=== PATIENT | male | born 1955 | race Caucasian/White ===

== ENCOUNTER 2024-06-16 09:25 | Outpatient (CLI) | payer MEDICARE, BC | END 2024-06-16 23:59 | disposition home or self-care (01) | LOC: MRI02 09:25 | PROVIDERS: ATTEND Pediatrics Sports Medicine | DX: M47.817 Spondylosis without myelopathy or radiculopathy, lumbosacral region (principal); M51.370 Other intervertebral disc degeneration, lumbosacral region with discogenic back pain only; M43.16 Spondylolisthesis, lumbar region; M79.10 Myalgia, unspecified site | CPT/HCPCS: 72148 ==

== ENCOUNTER 2025-03-31 08:46 | Emergency (ER) | payer MEDICARE, BC ==
[~2025-03-31] VITALS: Ht 177.8 cm; Wt 102.1 kg
[2025-03-31 08:51] VITALS: TEMP 98.2
--- NOTE | 2025-03-31 09:01 | Physician Documentation ---
History of Present Illness ~ Stated Complaint: PAINFUL URINATION Time Seen by MD: 09:07 HPI This is a 69-year-old male with a stated history of asthma who presents to the emergency department for three days of pain in his low back when his bladder is full. He believes he is emptying completely, he denies dysuria, he denies fevers. He denies any known history of prostate issues, and does not take any medications pertinent to this. States that the pain will radiate from his lower back down the back of his legs bilaterally. Pain tends to improve with rest and worsened when he is bending or twisting. He denies any numbness or tingling in his lower extremities, denies any saddle anesthesia, denies any radiating pain up his back or any other associated symptoms. He denies any recent trauma. Medication Reconciliation Allergies: Coded Allergies: No Known Allergies (Unverified , 03/31/25) Review of Systems All Other Systems at this time: Reviewed and Negative ROS As stated above in the HPI, otherwise all systems are reviewed and negative. Physical Exam Physical Exam I have reviewed the triage vitals. CONST: Well developed and well nourished. In no acute distress HENT: Head Atraumatic EYES: Pupils are equal, round and reactive to light. Normal conjunctiva NECK: Normal range of motion. Supple. CARDIO: Normal rate and regular rhythm. No murmurs, rubs, or gallops. S1, S2. PULM/CHEST: No respiratory distress. Lungs clear to auscultation. No wheeze ABD: Soft and nontender. Nondistended. Bowel sounds normal. No guarding. : Exam deferred MSK: No edema. No deformity. Slight tenderness to palpation over the sacral vertebrae and paraspinal muscles, pain elicited with flexion, extension and rotation up the vertebral column, straight leg raise is negative bilaterally. NEURO: Alert and oriented to person, place and time. Moving all extremities SKIN: Warm and dry. PSYCH: Normal mood and affect. Good eye contact. Progress Results/Orders Results/Orders Orders - MURRAY RABAGO MD Lumbar Spine Complte (03/31/25 09:29) Completed Orders - MURRAY RABAGO MD Cbc/Diff (03/31/25 09:29) CMP (03/31/25 09:29) Lumbar Spine Complte (03/31/25 09:29) Electrocardiogram (03/31/25 09:29) Vital Signs 03/31/25 03/31/25 03/31/25 08:51 09:30 10:14 Temp 98.2 Pulse 104 82 Resp 18 15 15 B/P (MAP) 133/79 125/90 (102) Pulse Ox 95 98 O2 Flow Rate 0 Laboratory Tests Test 03/31/25 09:05 03/31/25 09:53 Urine Specimen Description Cln catch midstream Urine Color Yellow Urine Clarity Clear Urine pH 6.0 Urine Specific [place] 1.025 Urine Protein Negative Urine Glucose (UA) Negative Urine Ketones Trace H Urine Occult Blood Negative Urine Nitrite Negative Urine Bilirubin Negative Urine Urobilinogen 0.2 Urine Leukocyte Esterase Negative Urine Culture Indicated Not ind Volume Urine Centrifuged 10 ml Urine Comment White Blood Count 3.9 L Red Blood Count 5.47 Hemoglobin 16.4 Hematocrit 49.4 Mean Corpuscular Volume 90.3 Mean Corpuscular Hemoglobin 30.0 Mean Corpuscular Hemoglobin Concent 33.2 Red Cell Distribution Width 14.2 Platelet Count 201 Mean Platelet Volume 8.5 Neutrophils (%) (Auto) 63.6 Lymphocytes (%) (Auto) 22.2 Monocytes (%) (Auto) 9.6 Eosinophils (%) (Auto) 4.0 Basophils (%) (Auto) 0.6 Neutrophils # (Auto) 2.5 Lymphocytes # (Auto) 0.9 L Monocytes # (Auto) 0.4 Eosinophils # (Auto) 0.2 Basophils # (Auto) 0.0 CBC Comment Sodium Level 143 Potassium Level 4.3 Chloride Level 105 Carbon Dioxide Level 32.6 H Anion Gap 5 L Blood Urea Nitrogen 16 Creatinine 0.90 Estimated GFR/1.73 m2 84 BUN/Creatinine Ratio 17.8 Glucose Level 103 Calcium Level 8.7 Total Bilirubin 0.7 Aspartate Amino Transf (AST/SGOT) 32 Alanine Aminotransferase (ALT/SGPT) 55 Alkaline Phosphatase 65 Total Protein 7.2 Albumin 3.7 Globulin 3.5 Albumin/Globulin Ratio 1.1 Chemistry Comments EKG/XRAY/CT/US/VASC/MRI EKG : Additional Comment EKG as interpreted by me indicating normal sinus rhythm with a rate of 81 beats per minute, normal axis, no ischemia Chest X-Ray : Additional Comments CLINICAL INFORMATION: Low-back pain. TECHNIQUE: 5 views of the lumbar spine were obtained. COMPARISON: MR MRI LUMBAR SPINE on DOS: 06/16/24 FINDINGS: There is mild grade 1 anterolisthesis of L4 on L5. Minimal retrolisthesis of L2 on L3. Vertebral body heights are maintained. Posterior elements are intact. No acute fracture. Moderate disc space narrowing at L2-L3 and L3-L4 with associated endplate sclerosis and endplate spurring. Nqqb-di-dmuqzskw disc space narrowing at L4-L5. Multilevel moderate facet hypertrophy. Paraspinal soft tissues are grossly unremarkable. Moderate calcification of the abdominal aorta. Moderate sclerosis adjacent to the sacroiliac joints bilaterally. Multiple small phleboliths in the pelvis. IMPRESSION: 1. No evidence of acute fracture in the lumbar spine. 2. Spondylolisthesis at L2-L3 and L4-L5, similar to the prior MRI. 3. Degenerative disc disease and facet disease in the lumbar spine as described above. Medical Decision Making Additional information obtaine: N/A Findings - Urinary Diff Dx:Considerations: Unlikely: AAA, Aortic dissection, Appendicitis, Appendicitis train, Bowel obstruction, Bladder outlet obstruc., Cholelithiasis, Choleangitis, Cholecystitis, DJD, Epididymitis, Hepatitis, HNP, Impaction, Musculoskeletal pain, Pancreatitis, Postoperative Comp., Prostatitis, Pyelonephritis, Renal failure, Renal infarction, Strain, Urolithiasis, Urinary Obstruction, Urethritis, Urinary retention, UTI, Other Genital Diff Dx:Considerations: Unlikely: Abscess, Balanitis, Balanoposthitis, Cellulitis, Epididymitis, Entrapment injury, Ember's gangrene, Foreign body, Facture penis, Hydrocele, Inguinal hernia, Post-op Complication, Paraphimosis, Prostatitis, Priapism, Syphilis, Testicular torsion, Torsion-epididymis, Torsion-appendiceal, Urinary retention, Urethritis, Urethritis-chlamydial, Urethritis-gonococcal, UTI, Other Additional Comment 69-year-old male presenting with lower back pain with radiating pain down his lower extremities. A lumbar x-ray indicated multilevel degenerative changes. Patient likely has a significant degree of lumbar and sacral spondylosis which are causing his symptoms. We did lab work which was unremarkable as well. EKG was normal. I do believe that the patient's symptoms are musculoskeletal in cesar ure I advised him to follow up with his primary care physician. The patient has meloxicam at home and advised him he can take this in addition to Tylenol as needed. He was advised to follow up closely with his PCP and return to the ED with any acutely worsening symptoms. Patient expressed full understanding of the assessment and plan and was amenable. Departure Disposition: HOME / SELF CARE / HOMELESS Impression: Primary Impression: Lumbar spondylosis Additional Impression: Sacral spondylosis Condition: Stable Discharge Instructions: Sciatica, Chronic Back Pain Additional Instructions: Please follow up closely with primary care physician for referral for an MRI of your lumbar and sacral spines. You may need a referral to pain management for treatment of this. In the meantime you may take Tylenol, ibuprofen or your meloxicam as needed for pain control. Stay active and avoid long periods of sitting. Please return to the ED with any acutely worsening symptoms. Referrals: NO PRIMARY CARE PROVIDER (PCP) Signature Scribe Signature: - Attestation: - RAUDEL SULLIVAN NP Mar 31, 2025 09:01 MURRAY RABAGO MD Mar 31, 2025 09:43
[2025-03-31 09:12] LABS: LEUKOCYTE ESTERASE ,URINE NEGATIVE (Neg); NITRITES, URINE NEGATIVE (Neg); OCCULT BLOOD,URINE NEGATIVE (Neg); UA COLLECTION TYPE CLN CATCH MIDSTREAM
--- NOTE | 2025-03-31 09:48 | ELECTROCARDIOGRAPH REPORT ---
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 Aleks Hardy Measurements Intervals [place] Rate: 81 P: 69 IA: 150 QRS: 72 QRSD: 88 T: 8 QT: 345 QTc: 401 Interpretive Statements Sinus rhythm Posterior infarct, old Electronically Signed On 04-03-2025 20:44:[address] Aleks Hardy Please click the below link to view image of tracing.
[2025-03-31 10:17] LABS: MEAN PLATELET VOLUME 8.5 FL (7.4-10.4); RED CELL DISTRIBUTION WIDTH 14.2 % (11.5-14.5)
--- NOTE | 2025-03-31 10:27 | RADIOLOGY REPORT ---
CLINICAL INFORMATION: Low-back pain. TECHNIQUE: 5 views of the lumbar spine were obtained. COMPARISON: MR MRI LUMBAR SPINE on DOS: 06/16/24 FINDINGS: There is mild grade 1 anterolisthesis of L4 on L5. Minimal retrolisthesis of L2 on L3. Vertebral body heights are maintained. Posterior elements are intact. No acute fracture. Moderate disc space narrowing at L2-L3 and L3-L4 with associated endplate sclerosis and endplate spurring. Mild-to-m oderate disc space narrowing at L4-L5. Multilevel moderate facet hypertrophy. Paraspinal soft tissues are grossly unremarkable. Moderate calcification of the abdominal aorta. Moderate sclerosis adjacent to the sacroiliac joints bilaterally. Multiple small phleboliths in the pelvis. IMPRESSION: 1. No evidence of acute fracture in the lumbar spine. 2. Spondylolisthesis at L2-L3 and L4-L5, similar to the prior MRI. 3. Degenerative disc disease and facet disease in the lumbar spine as described above.
[2025-03-31 10:30] LABS: CREATININE 0.90 MG/DL (0.60-1.10); TOTAL CARBON DIOXIDE 32.6 MMOL/L (24-32); eCRCL 80 ML/MIN; eGFR 84 ML/MIN
[2025-03-31 11:42] VITALS: BP 134/80; PULSE 68; RESP 16; O2SAT 94
== END 2025-03-31 11:42 | disposition home or self-care (01) ==
LOC: ER 08:46
DX: M47.9 Spondylosis, unspecified (principal); J45.909 Unspecified asthma, uncomplicated; I49.8 Other specified cardiac arrhythmias
CPT/HCPCS: 36415; 72110; 80053; 81003; 85025; 93005; 99285